=== PATIENT | female | born 1980 | race Caucasian/White ===

== ENCOUNTER 2016-12-22 13:00 | Inpatient (IN) | payer OTHER ==
--- NOTE | ~2016-12-22 | DS ---
Unit #: [id number] #: [id number] Patient: [facility] [id number] [facility] [address] [place] [address] [id number] MR#: [id number] NAME: IY SAMUEL ROOM: [facility] Age: 36 Sex: F Admission Date: 12/22/2016 : 1980 Discharge Date: 12/28/2016 Attending Physician: Felicitas Rush M.D. Primary Care Physician: Generic Doctor Not In System DISCHARGE SUMMARY IDENTIFYING DATA Ms. Samuel is a 36-year-old white female, who is a resident of [place], [place] and was self-referred to the hospital as a transfer from [facility] with a chief complaint of "I just want to end everything, I've been using meth and heroin." DISCHARGE DIAGNOSES Psychiatric: Major depressive disorder, recurrent, moderate, without psychotic features; opioid dependence, moderate, in acute withdrawals; and methamphetamine dependence, moderate. Medical: None. Stressors: Mild psychosocial stressors. HISTORY OF PRESENT ILLNESS Please see initial psychiatric evaluation for details. PAST PSYCHIATRIC HISTORY Please see initial psychiatric evaluation for details. PAST MEDICAL HISTORY Please see initial psychiatric evaluation for details. HOSPITAL COURSE The patient was admitted to the adult psychiatric and chemical dependency unit at [facility] and was oriented to the hospital environment. Routine p.r.n. medications were initiated, and she was started back on her home medications. Medications were adjusted and she was initially started on the detox protocol, and though she was detoxing, she was complaining of persistent depressive symptoms and was wanting to get back on her previous regimen of Prozac and BuSpar which was initiated and she then also stated that she has been having significant mood swings and was wanting a mood stabilizer and Risperdal was added into the regimen. She was able to show a fairly decent and therapeutic response and as such, it was decided that she will be discharged home and will continue treatment on an outpatient basis. DISCHARGE MEDICATIONS Prozac 20 mg a day for depression, Risperdal 0.5 mg b.i.d. for mood, and BuSpar 10 mg b.i.d. for anxiety. DISCHARGE CONDITION Stable. PROGNOSIS Unit #: [id number] #: [id number] Patient: YI SAMUEL Fair. Dictated by... Jose A Donnelly/richie TD: 12/30/2016 18:53 JOB #: [id number] DISCHARGE SUMMARY Page 1 of 1 X Felicitas Rush MD DISCHARGE SUMMARY
--- NOTE | ~2016-12-22 | HP ---
Unit #: [id number] #: [id number] Patient: YI SAMUEL [id number] [facility] [address] [place] [address] [id number] MR#: [id number] NAME: YI SAMUEL ROOM: [facility] Age: 36 Sex: F Admission Date: 12/22/2016 : 1980 Attending Physician: Felicitas Rush M.D. Admitting Physician: Felicitas Rush M.D. Primary Care Physician: Generic Doctor Not In System HISTORY AND PHYSICAL HISTORY OF PRESENT ILLNESS The patient is a 36-year-old female who states she is here due to heroin and methamphetamine detox. PAST MEDICAL HISTORY None. PAST SURGICAL HISTORY None. SOCIAL HISTORY Positive for smoking, alcohol and drugs. ALLERGIES The patient states none. FAMILY HISTORY Noncontributory. REVIEW OF SYSTEMS CONSTITUTIONAL: No fever or chills. HEENT: Denies any sore throat, ear pain or runny nose. CARDIOVASCULAR: Denies chest pain, irregular heart rhythm or palpitations. CHEST: Denies shortness of breath or cough. No hemoptysis. GASTROINTESTINAL: Denies nausea, vomiting, diarrhea or chronic constipation. ENDOCRINE: Denies history of increased thirst or urination. No recent significant weight loss or gain. GENITOURINARY: Denies dysuria, frequency, or hematuria. SKIN: Denies any rashes. HEMATOLOGIC: Denies history of increased bleeding or bruising. MUSCULOSKELETAL: Denies any hot, swollen joints. No generalized muscle pain. NEUROLOGIC: Denies problems with vision or speech. No frequent, severe headaches. No numbness, tingling or weakness in any extremities. Denies loss of bladder or bowel control. CURRENT MEDICATIONS None. PHYSICAL EXAMINATION Unit #: [id number] #: [id number] Patient: YI SAMUEL GENERAL: Alert, oriented in no acute distress. VITAL SIGNS: Temperature 98.3, heart rate 84, blood pressure 123/88, respiration 16. HEIGHT: 5 feet 7 inches WEIGHT: 160 pounds SKIN: Warm and dry without rash or lesion. Multiple tattoos right hand, left shoulder, right foot, buttock, left wrist, left upper back and left hand. HEENT: Normocephalic. TMs not viewed. Oral and nasal passages clear. Conjunctivae clear. PERRLA. EOMs intact. NECK: Supple without lymphadenopathy or thyromegaly. HEART: Regular rate and rhythm without murmur. LUNGS: Clear. ABDOMEN: Soft, nontender, without masses or hepatosplenomegaly. : Not done. EXTREMITIES: No evidence of cyanosis, clubbing or edema. Moves all without focal deficit. NEUROLOGICAL: Grossly within normal limits. Cranial Nerves: II: Visual phelan are intact. III, IV AND : Extraocular movements are intact. Pupils are equal, round and reactive to light. V: Facial sensation is grossly normal. VII: Facial movements and expression are normal. VIII: Auditory acuity grossly intact. IX, X: Uvula is midline. Phonation is normal. XI: Patient shrugs shoulders and turns head normally. XII: Tongue protrudes in the midline. Sensory and Motor Function: Sensory and motor sensation is grossly normal. Motor: moves all extremities well. Coordination: Gait is normal. Deep Tendon Reflexes: Intact. IMPRESSION Psychiatric admission. RECOMMENDATIONS Psychiatric, per psychiatrist. MEDICAL: I see no contraindications to participating in facility's activities. MEDICAL PROGNOSIS Good. Dictated by... Myles Watts/juan diego TD: 12/24/2016 02:32 JOB #: [id number] Unit #: [id number] #: [id number] Patient: YI SAMUEL HISTORY AND PHYSICAL Page 1 of X Rhea Llamas APR X HISTORY AND PHYSICAL
--- NOTE | ~2016-12-22 | PA ---
Unit #: [id number] #: [id number] Patient: YI SAMUEL [id number] [facility] [address] [place] [address] [id number] I MR#: [id number] NAME: YI SAMUEL ROOM: [facility] Age: 36 Sex: F Admission Date: 12/22/2016 : 1980 Date of Assessment: Attending Physician: Felicitas Rush M.D. Admitting Physician: Felicitas Rush M.D. Primary Care Physician: Generic Doctor Not In System PSYCHIATRIC ASSESSMENT DATE OF SERVICE 12/23/2016. IDENTIFYING DATA Ms. Samuel is a 36-year-old white female, who is a resident of [place], [place], and was self-referred to the hospital as a transfer from [facility] in [place], [place]. CHIEF COMPLAINT "I'm just wanting to end everything. I have been using meth and heroin." HISTORY OF PRESENT ILLNESS A 36-year-old white female, who took herself to the emergency room at [facility] stating that she has been wanting to end everything and that she has been using drugs, "I've been using meth and heroin and I need help. I was having thoughts to jump out in front of a car. I walked 10 miles and thought that same cars were following me around and I got scared and called the police." She reports that she is hopeless in her circumstances and that her children are now living with their father and that she is suicidal and does report increasing depression, anxiety, irritability, and feelings of hopelessness and helplessness, and suicidal ideations. The ER nurse reported that the patient was brought to the ER by [facility] due to thoughts to harm herself and that she is an IV drug user and has been using IV heroin and methamphetamine and has used methamphetamine on the day of coming to the hospital and reports several precipitants to self-injurious thoughts including boyfriend possibly cheating and she shares needles and she was positive for methamphetamine on presentation to the hospital and reports that her last use of heroin was 2 weeks ago. However, she was seen to be a significant threat to herself and as such, a recommendation for inpatient level of care was made and the patient was transferred to us. SUBSTANCE ABUSE HISTORY The patient reports extensive history of substance abuse and dependence including alcohol, cannabis, cocaine, opioids, and methamphetamine, and currently, IV methamphetamine and IV heroin have been her drug of choice. PAST PSYCHIATRIC HISTORY The patient has not had any prior inpatient or outpatient psychiatric treatment. Currently, she is not active in any treatment program, is not seeing a psychiatrist, and is not taking any psychotropic medications. PAST MEDICAL HISTORY Unit #: [id number] #: [id number] Patient: YI SAMUEL The patient's medical history is insignificant. ALLERGIES No known medication allergies. PERSONAL AND SOCIAL HISTORY A 36-year-old white female, who reports that she is single, unemployed, and essentially homeless and has poor social support system. MENTAL STATUS EXAMINATION Young white female, who was casually dressed with fair personal hygiene, and appears to be in no acute distress or discomfort. She was awake and alert on interaction with intact orientation to time, place, and person. Her mood was anxious and depressed with a congruent affect. Her speech was slow and restricted in content. Her thought processes were disorganized with some looseness of associations and flight of ideas. Her insight and judgment remain significantly impaired. DIAGNOSTIC IMPRESSION Psychiatric: Major depressive disorder, recurrent, moderate, without psychotic features; opioid dependence, moderate, in acute withdrawals; and methamphetamine dependence, moderate. Medical: None. Stressors: Moderate psychosocial stressors. TREATMENT PLAN 1. The patient has presented with a history of mood disorder and has been decompensating and will need inpatient hospitalization for safety and stabilization and detoxification. We will start her on antidepressant therapy and detox protocol. We will monitor response. 2. Supportive therapy was provided to the patient. 3. Safe, structured, and nourishing environment will be provided. ESTIMATED LENGTH OF STAY 5 to 7 days. ABILITY TO HELP SELF Limited. WILLINGNESS TO HELP SELF The patient appears to be willing to help self. STRENGTHS 1. Communicative. 2. Cooperative. PROBLEMS 1. Chronic dysphoric symptoms. 2. Chronic chemical dependency. 3. Poor social support system. DISCHARGE CRITERIA This will be contingent upon the patient's ability to show resolution of her depression and anxiety and her ability to go through detox without having any significant withdrawal symptoms as well as her ability to stay safe to herself, particularly after discharge from the hospital. Dictated by... Unit #: [id number] #: [id number] Patient: YI SAMUEL Jose A Donnelly/richie TD: 12/23/2016 13:23 JOB #: [id number] PSYCHIATRIC ASSESSMENT Page 1 of 1 X Felicitas Rush MD PSYCHIATRIC ASSESSMENT
--- NOTE | ~2016-12-22 | PN ---
Unit #: [id number] #: [id number] Patient: YI SAMUEL [id number] [facility] [address] [place] [address] [id number] I MR#: [id number] NAME: YI SAMUEL ROOM: [facility] Age: 36 Sex: F Admission Date: 12/22/2016 : 1980 Attending Physician: Felictias Rush M.D. Admitting Physician: Felicitas Rush M.D. Primary Care Physician: Generic Doctor Not In System [facility] PROGRESS NOTES DATE OF SERVICE: 12/25/2016 SUBJECTIVE Ms. Samuel is a 36-year-old white female, who was seen today and chart was reviewed and case was discussed with the staff. She has been anxious, withdrawn, and rather seclusive to herself. Meanwhile, she has been cooperative with treatment recommendations and has been taking the medications and tolerating them fairly well with no reported side effects. MENTAL STATUS EXAMINATION Young white female, who was casually dressed with fair personal hygiene, appears to be in no acute distress or discomfort. She was awake and alert on interaction with intact orientation. Her mood was anxious with a congruent affect. She denies any suicidal or homicidal ideations. Her insight and judgment remain slightly impaired. TREATMENT PLAN 1. We will continue her on her current medications and treatment protocol. We will monitor her response to the medications and make further adjustments as needed. 2. We will continue to follow up. Dictated by... Jose A Donnelly/richie TD: 12/26/2016 01:13 JOB #: [id number] [facility] PROGRESS NOTES Page 1 of 1 X Felicitas Rush MD PROGRESS NOTE
--- NOTE | ~2016-12-22 | CO ---
Unit #: [id number] #: [id number] Patient: KRISTEN SAMUEL [id number] [place] [address] [id number] I MR#: [id number] NAME: KRISTEN SAMUEL ROOM: [facility] Age: 36 Sex: F Admission Date: 12/22/2016 : 1980 Attending Physician: Felicitas Rush M.D. Primary Care Physician: Generic Doctor Not In System Consultation Date: 12/24/2016 CONSULTATION REPORT SUBJECTIVE Kristen is a 36-year-old with an abnormal urinalysis on admission. She has no complaints of urgency, frequency, or dysuria. There have been no recorded increased temperatures. OBJECTIVE GENERAL: Alert, well nourished, in no apparent distress. VITAL SIGNS: Blood pressure 100/70, heart rate 64, respirations 16, temperature 98.6, weight 160 and height 5 feet 7 inches. DIAGNOSTIC STUDIES LABORATORY RESULTS: Admission urinalysis; 1+ bacteria, 5 to 10 wbc's. ASSESSMENT Urinary tract infection. PLAN Bactrim DS one p.o. b.i.d. x3 days. Dictated by... Margoth Galaviz P.A.-C. for Jose A Lopez/richie TD: 12/26/2016 02:15 JOB #: [id number] CONSULTATION REPORT Page 1 of 1 X Margoth Galaviz CONSULTATION REPORT
--- NOTE | ~2016-12-22 | PN ---
Unit #: [id number] #: [id number] Patient: YI SAMUEL [id number] [facility] [address] [place] [address] [id number] I MR#: [id number] NAME: YI SAMUEL ROOM: [facility] Age: 36 Sex: F Admission Date: 12/22/2016 : 1980 Attending Physician: Felicitas Rush M.D. Admitting Physician: Felicitas Rush M.D. Primary Care Physician: Generic Doctor Not In System [facility] PROGRESS NOTES DATE December 24, 2016 DISCUSSION Ms. Samuel is a 36-year-old white female, who was seen today and chart was reviewed and the case was discussed with the staff. She has been anxious, withdrawn, and rather seclusive to herself. Meanwhile, she has been cooperative with the treatment recommendations and she has been taking the medications and tolerating them fairly well with no side effects. MENTAL STATUS EXAMINATION Young white female, who was casually dressed with fair personal hygiene and appears to be in no acute distress or discomfort. The patient was awake and alert on interaction with intact orientation. Her mood is anxious with a congruent affect. The patient denies any suicidal or homicidal ideations. Her insight and judgment remain slightly impaired. TREATMENT PLAN 1. We will continue her on her current medications and will start her back on her Prozac and BuSpar, (1) . 2. We will continue to followup. Dictated by... Jose A Donnelly/shauna TD: 12/25/2016 08:02 JOB #: [id number] Unit #: [id number] #: [id number] Patient: YI SAMUEL PROGRESS NOTES Page 1 of 1 X Felicitas Rush MD PROGRESS NOTE
--- NOTE | ~2016-12-22 | PN ---
Unit #: [id number] #: [id number] Patient: YI SAMUEL [id number] [facility] [address] [place] [address] [id number] I MR#: [id number] NAME: YI SAMUEL ROOM: [facility] Age: 36 Sex: F Admission Date: 12/22/2016 : 1980 Attending Physician: Felicitas Rush M.D. Admitting Physician: Felicitas Rush M.D. Primary Care Physician: Generic Doctor Not In System [facility] PROGRESS NOTES DATE December 27, 2016 DISCUSSION Ms. Samuel is a 36-year-old white female, who was seen today and chart was reviewed and the case was discussed with the staff. She has been anxious, withdrawn, but has not shown any agitation, irritability, or behavioral problems, and has been cooperative with the treatment recommendations, and she has been taking the medications and tolerating them fairly well, with no reported side effects. MENTAL STATUS EXAMINATION Young white female, who was casually dressed with fair personal hygiene and appears to be in no acute distress or discomfort. The patient was awake and alert on interaction with intact orientation. Her mood was anxious with a congruent affect. The patient denies any suicidal or homicidal ideations. Her insight and judgment remain slightly impaired. TREATMENT PLAN 1. We will continue her on her current treatment protocol, and will add Risperdal as a mood stabilizer, at the patient's request. 2. We will continue to followup. Dictated by... Jose A Donnelly/shauna TD: 12/27/2016 08:55 JOB #: [id number] Unit #: [id number] #: [id number] Patient: YI SAMUEL PROGRESS NOTES Page 1 of 1 X Felicitas Rush MD PROGRESS NOTE
--- NOTE | ~2016-12-22 | PN ---
Unit #: [id number] #: [id number] Patient: YI SAMUEL [id number] [facility] [address] [place] [address] [id number] I MR#: [id number] NAME: YI SAMUEL ROOM: [facility] Age: 36 Sex: F Admission Date: 12/22/2016 : 1980 Attending Physician: Felicitas Rush M.D. Admitting Physician: Felicitas Rush M.D. Primary Care Physician: Generic Doctor Not In System [facility] PROGRESS NOTES DATE 12/26/2016 DISCUSSION Ms. Samuel is a 36-year-old white female who was seen today and chart was reviewed and case was discussed with the staff. She has been anxious, withdrawn, depressed and seclusive to herself with blunted affect and minimal interaction. Meanwhile, she has been taking medications and tolerating them fairly well with no reported side effects. MENTAL STATUS EXAMINATION Young white female who was casually dressed with fair personal hygiene and appears to be in no acute distress or discomfort. She was awake and alert on interaction with intact orientation. Her mood was anxious and depressed with congruent affect. Her speech is slow and restricted in content. She reports having suicidal ideation but denies any intent or plan. Her insight and judgement remains . TREATMENT PLAN 1. Will continue on current medications and treatment protocol. Will monitor her response to medications and make further adjustments as needed. 2. Will continue to follow up. Dictated by... Jose A Donnelly/marleny TD: 12/26/2016 18:23 JOB #: [id number] Unit #: [id number] #: [id number] Patient: YI SAMUEL PROGRESS NOTES Page 1 of 1 X Felicitas Rush MD PROGRESS NOTE
[2016-12-23 11:07] LABS: URINE APPEARANCE CLOUDY; URINE BLOOD NEG (NEG); URINE COLOR BROWN; URINE GLUCOSE NORM (NORM); URINE KETONE NEG (NEG); URINE LEUKOCYTE ESTERASE 2+ (NEG); URINE NITRATE POS (NEG); URINE PROTEIN NEG (NEG); URINE UROBILINOGEN NORM (NORM)
[2016-12-23 11:11] LABS: URINE BILIRUBIN NEG (NEG)
[2016-12-23 11:38] LABS: BASOPHIL% 0.8 % (0-2.5); DIFF IND NO; EOSINOPHIL# 0.1 X10e3 (0-0.7); EOSINOPHIL% 2.1 % (0.0-7.0); HEMATOCRIT 34.1 % (35.0-45.0); HEMOGLOBIN 10.9 gm/dL (12.0-16.0); LYMPHOCYTE% 35.6 % (17.0-45.0); MEAN CELL VOLUME 81.5 FL (83-96); MEAN CORPUSCULAR HEMOGLOBIN 26.1 PG (28-34); MEAN CORPUSCULAR HGB CONC 32.1 g/dL (30-36); MEAN PLATELET VOLUME 8.9 FL (6.5-11.5); MONOCYTE# 0.5 X10e3 (0-1.0); MONOCYTE% 8.7 % (3.0-12.0); NEUTROPHIL# 2.9 X10e3 (1.5-7.1); NEUTROPHIL% 52.8 % (40-75); PLATELET COUNT 255 X10e3 (140-420); RED BLOOD COUNT 4.18 X10e (3.90-5.30); RED CELL DISTRIBUTION WIDTH 15.7 % (11.0-15.5); WHITE BLOOD COUNT 5.6 X10e3 (4.0-10.5)
[2016-12-23 11:48] LABS: ALBUMIN SERUM 3.7 g/dL (3.5-5.0); BILIRUBIN,TOTAL 0.6 mg/dL (0.2-2.0); BUN/CREATININE RATIO 18.75; CALCIUM SERUM 8.9 mg/dL (8.4-10.2); CREATININE SERUM 0.8 mg/dL (0.6-1.4); GLOM FILT RATE Estimated 95.6 mL/min (>60); POTASSIUM 3.6 mmol/L (3.5-5.1); PROTEIN TOTAL SERUM 6.4 g/dL (6.0-8.3)
[2016-12-23 12:16] LABS: BARBITURATES NEG (NEG); TRICYCLIC ANTIDEPRESSANTS NEG (NEG); U METHADONE NEG (NEG)
[2016-12-23 13:03] LABS: URBCS1 AUWI 0-2 /[HPF] (0-2); URINE BACTERIA AUWI 1+ (NEGATIVE); URINE SQUAMOUS EPITHELIAL CELL OCCAS /[HPF]
[2016-12-23 13:04] LABS: URINE AMORPHOUS SEDIMENT AMORP URATES
== END 2016-12-28 10:20 | disposition home or self-care (01) | DRG 885 ==
LOC: P1E 20:47
PROVIDERS: Psychiatry & Neurology Psychiatry
PROC: HZ2ZZZZ Detoxification Services for Substance Abuse Treatment (ICD-10-PCS; principal; 2016-12-22)
DX: F33.1 Major depressive disorder, recurrent, moderate (principal); F15.20 Other stimulant dependence, uncomplicated; F11.23 Opioid dependence with withdrawal; F41.9 Anxiety disorder, unspecified
CPT/HCPCS: 80053; 80307; 81003; 84703; 85025; 86592